=== PATIENT | female | born 1995 ===

== ENCOUNTER 2021-12-07 14:30 | Outpatient (CLI) | payer BC, SELFPAY ==
[2021-12-11 12:15] LABS: ANA Cascade Screen Negative (Negative)
== END 2021-12-07 14:31 | disposition home or self-care (01) ==
LOC: ANHLAB 14:32
PROVIDERS: Visit Provider Physician Assistant
DX: M25.50 Pain in unspecified joint (principal); R53.83 Other fatigue
CPT/HCPCS: 36415; 86038